=== PATIENT | female | born 1990 | race Caucasian/White ===

== ENCOUNTER 2018-04-13 13:36 | Observation (INO) | payer OTHER ==
[2018-04-13] MEDS ORDERED: KETOROLAC 30 MG/ML 1 ML VIAL IVP STA ×2 (13:57→15:29)
[2018-04-13] MEDS ORDERED: fentaNYL (PF) 50 MCG/ML 2 ML AMP IV STA (13:59)
[2018-04-13 14:21] LABS: Basophils % (A) 1 %; Eosinophils # (A) 0.1 k/uL (0-0.7); Eosinophils % (A) 2 %; HCT 41.5 % (34.0-46.0); HGB 13.9 gm/dL (11.4-16.0); Lymphocytes # (A) 1.5 k/uL (1.0-4.8); Lymphocytes % (A) 26 %; MCH 28.5 pg (25.0-35.0); MCHC 33.6 g/dL (31.0-37.0); MCV 84.9 fL (80.0-100.0); Mean Platelet Volume 7.3; Monocytes # (A) 0.3 k/uL (0-1.0); Monocytes % (A) 6 %; Neutrophils # (A) 3.8 k/uL (1.3-7.7); Neutrophils % (A) 63 %; Platelet Count 243 k/uL (150-450); RBC 4.89 m/uL (3.80-5.40); RDW 13.6 % (11.5-15.5); WBC 5.9 k/uL (3.8-10.6)
[2018-04-13 14:25] LABS: HCG,Qualitative Serum Not Detected
[2018-04-13 14:27] LABS: Anion Gap 5 mmol/L; Blood Urea Nitrogen 17 mg/dL (7-17); Calcium 8.8 mg/dL (8.4-10.2); Carbon Dioxide 25 mmol/L (22-30); Chloride 109 mmol/L (98-107); Glucose 123 mg/dL (74-99); Potassium 4.3 mmol/L (3.5-5.1); Sodium 139 mmol/L (137-145)
[2018-04-13] MEDS ORDERED: diphenhydrAMINE 50 MG CAP PO STA (14:29)
[2018-04-13] MEDS ORDERED: methylPREDNISolone SOD SUCCI 125 MG/2 ML VIAL IV STA (14:29)
[2018-04-13] MEDS ORDERED: FAMOTIDINE 20 MG/2 ML VIAL IV STA (14:30)
--- NOTE | 2018-04-13 15:21 | ED ---
Fall HPI - General Chief Complaint: Fall Stated Complaint: fall, back pain Time Seen by Provider: 04/13/18 13:52 Source: patient, EMS Mode of arrival: EMS - History of Present Illness Initial Comments: 28-year-old female presenting after mechanical fall. Patient states she was walking when she tripped on her daughter stress falling backwards and she heard a crunch in her back. She's been unable to ambulate secondary to the pain. She admits to right fifth toe numbness but denies any other numbness or weakness. Denies any saddle anesthesia or bowel or bladder dysfunction. - Related Data Home Medications Medication Instructions Recorded Confirmed Biotin 5 mg PO DAILY 04/13/18 04/13/18 Cholecalciferol [Vitamin D3] 1,000 unit PO DAILY 04/13/18 04/13/18 Ferrous Sulfate [Slow Release Iron] 250 mg PO DAILY 04/13/18 04/13/18 INSULIN LISPRO (For Pump) [humaLOG 0.01 units SQ-PUMP CONTINUOUS 04/13/18 (For Pump)] L.acidoph,Paracasei, B.lactis 1 cap PO DAILY 04/13/18 04/13/18 [Probiotic] Levothyroxine Sodium [Synthroid] 50 mcg PO DAILY 04/13/18 04/13/18 Methylphenidate HCl [Concerta] 54 mg PO DAILY 04/13/18 04/13/18 Ondansetron HCl [Zofran] 8 mg PO Q8H PRN 04/13/18 04/13/18 Sertraline [Zoloft] 50 mg PO DAILY 04/13/18 04/13/18 Allergies Allergy/AdvReac Type Severity Reaction Status Date / Time Opioids - Morphine Analogues Allergy Intermediate Rash/Hives Verified 04/13/18 17:14 morphine AdvReac Itching Verified 04/13/18 14:01 Review of Systems ROS Statement: Those systems with pertinent positive or pertinent negative responses have been documented in the HPI. Review of Systems Constitutional: Denies fever, chills Eyes: Denies change in vision, Denies pain Ears, nose, mouth, throat: Denies headaches, Denies sore throat Cardiovascular: Denies chest pain. Denies palpitations Respiratory: Denies shortness of breath, Denies cough Gastrointestinal: Denies abdominal pain. Denies nausea, vomiting, diarrhea. Genitourinary: Denies hematuria, Denies infections Musculoskeletal: Positive back pain, Denies swelling Integumentary: Denies rash Neurological: Denies headache, focal weakness, focal numbness Psychiatric: Denies anxiety, Denies depression Hematologic/Lymphatic: Denies easy bleeding or bruising ROS Other: All systems not noted in ROS Statement are negative. Past Medical History Past Medical History: Diabetes Mellitus Additional Past Medical History / Comment(s): shawn's History of Any Multi-Drug Resistant Organisms: None Reported Past Surgical History: Section, Orthopedic Surgery Past Psychological History: ADD/ADHD Smoking Status: Never smoker Past Alcohol Use History: None Reported Past Drug Use History: None Reported - Past Family History Father Family Medical History: Hypertension Additional Family Medical History / Comment(s): depression Mother Family Medical History: Hypertension, Thyroid Disorder Additional Family Medical History / Comment(s): chirrosis, aniety, depression General Exam - General Exam Comments Initial Comments: General: Awake, alert, No acute Distress HENT: Normocephalic. Atraumatic Eyes: PERRL. EOMI. No scleral icterus. No injected conjunctiva Neck: Full ROM Chest/Lungs: Clear to auscultation bilaterally. No wheezing, rhonchi, or rales Cardiac: Regular rate, rhythm. No murmurs or rubs Abdomen/GI: Soft, nontender, nondistended. No rebound, guarding, or rigidity. Musculoskeletal: Midline lumbar spinal tenderness. Skin: Warm, dry, intact Neurologic: A/Ox3, no weakness, no sensory deficit, no abnormal gait, no coordination deficit Limitations: physical limitation Course Vital Signs 04/13/18 04/13/18 04/13/18 13:47 17:30 17:31 Temperature 98.1 F 98.6 F 98.6 F Pulse Rate 102 H Pulse Rate [ 107 H Pulse Oximetery ] Respiratory 20 18 Rate Blood Pressure 128/89 Blood Pressure 123/76 [Left Arm] O2 Sat by Pulse 98 96 Oximetry Medical Decision Making - Medical Decision Making 28-year-old female presenting with back pain status post fall. Initial exam the patient is awake alert and uncomfortable. She is nexus criteria negative and her c-collar was removed. Head or neck injury in the fall. Patient's x- ray shows an L2 anterior body compression fracture that could be greater than 50 %. At this time the patient may have an unstable fracture. She was instructed to not ambulate and to lay flat. CT lumbar spine without contrast ordered. patient was given Fentanyl and developed diffuse urticaria and itching. Solumedrol, benadryl, and pepcid given. Patient had no oropharyngeal swelling or wheezing. Her symptoms improved after medications. 1649 Spoke with radiology who confirmed that the patient has an L2 fracture involving the anterior and middle columns. There is no spinal canal involvement or foraminal involvement at this time. I spoke with Dr. Cui stated he will speak with Dr. Sanchez. Placed a Hernandez for strict bedrest. Patient at this time remains neurologically intact. [address] Cui again and he stated to admit to Dr. Sanchez, make the patient strict bed rest, and stated she would likely require a brace. Updated patient and family. Medicine placed on consult as patient is a type 1 diabetic. - Lab Data Result diagrams: 04/13/18 14:06 04/13/18 18:06 Lab Results 04/13/18 04/13/18 Range/Units 14:06 14:06 WBC 5.9 (3.8-10.6) k/uL RBC 4.89 (3.80-5.40) m/uL Hgb 13.9 (11.4-16.0) gm/dL Hct 41.5 (34.0-46.0) % MCV 84.9 (80.0-100.0) fL MCH 28.5 (25.0-35.0) pg MCHC 33.6 (31.0-37.0) g/dL RDW 13.6 (11.5-15.5) % Plt Count 243 (150-450) k/uL Neutrophils % 63 % Lymphocytes % 26 % Monocytes % 6 % Eosinophils % 2 % Basophils % 1 % Neutrophils # 3.8 (1.3-7.7) k/uL Lymphocytes # 1.5 (1.0-4.8) k/uL Monocytes # 0.3 (0-1.0) k/uL Eosinophils # 0.1 (0-0.7) k/uL Basophils # 0.0 (0-0.2) k/uL Sodium 139 (137-145) mmol/L Potassium 4.3 (3.5-5.1) mmol/L Chloride 109 H (98-107) mmol/L Carbon Dioxide 25 (22-30) mmol/L Anion Gap 5 mmol/L BUN 17 (7-17) mg/dL Creatinine 0.49 L (0.52-1.04) mg/dL Est GFR (CKD-EPI)AfAm >90 (>60 ml/min/1.73 sqM) Est GFR (CKD-EPI)NonAf >90 (>60 ml/min/1.73 sqM) Glucose 123 H (74-99) mg/dL Calcium 8.8 (8.4-10.2) mg/dL HCG, Qual Not Detected Disposition Clinical Impression: L2 vertebral fracture, Allergic reaction Disposition: ADMITTED IP TO THIS [facility] Decision Date: 04/13/18 Decision Time: 17:06
--- NOTE | 2018-04-13 15:59 | XR ---
EXAMINATION TYPE: XR lumbar spine 2 or 3V DATE OF EXAM: 04/13/2018 CLINICAL HISTORY: EXAMINATION TYPE: XR lumbar spine 2 or 3V DATE OF EXAM: 04/13/2018 CLINICAL HISTORY: Fall, back pain TECHNIQUE: Frontal, lateral, and oblique images of the lumbar spine are obtained. COMPARISON: None. FINDINGS: L2 vertebral body demonstrates anterior height loss with a transversely oriented cortical disruption distending horizontally across the vertebral body to at least its midportion. No anterolisthesis or r etrolisthesis. No retropulsion of the posterior aspect of the vertebral body is evident. No discrete involvement of the posterior elements. Facets remain in normal alignment. There are 5 lumbar type vertebral bodies identified. IMPRESSION: Anterior L2 vertebral body compression fracture with fracture line extending horizontally and involvi ng at least 50% of the vertebral body. Findings are concerning for an unstable fracture. Recommendati on is for emergent CT of the lumbar spine. Supplemental communication findings were discussed with Dr. Francis by Dr. Richardson on 04/13/2018 at 1556 hours
--- NOTE | 2018-04-13 16:51 | CT ---
EXAMINATION TYPE: CT lumbar spine wo con DATE OF EXAM: 04/13/2018 4:19 PM COMPARISON: Radiograph from earlier the same day HISTORY: back pain following fall CT DLP: 1023 mGycm Automated exposure control for dose reduction was used. Unenhanced CT of the lumbar spine was performed. Bone and soft tissue window settings are submitted as well as coronal and sagittal reconstructions. Compression deformity predominantly involving the superior endplate of L2 vertebral body is evident. Fracture involves the anterior and middle vertebral columns. There is no involvement of the posterior elements or posterior column. There is no fracture line which involves the posterior wall of the nora tebral body. The pedicles are intact. Facets remain in normal alignment. No retropulsion of the poste rior elements of the vertebral body. No encroachment of the spinal canal. The neural foramina are not involved. There is slight anterior displacement of the most superior portion of the L2 vertebral bod y fracture fragments. A distinct fracture line extends from the superior portion of the vertebral bod y to involve the inferior endplate of the L2 vertebral body. A separate small fracture fragment is al so identified in involving the most anterolateral left aspect of the vertebral body. There is no evid ence of epidural hematoma. The remaining vertebral bodies and intervertebral disc spaces remain within normal limits. Remaining vertebral bodies all demonstrate normal disc space height. No disc herniation protrusion or central stenosis. No facet joint arthropathy. No evidence for foraminal encroachment. The visualized portio ns of the sacroiliac joints are unremarkable. Limited evaluation of the included solid and hollow abd ominal and pelvic viscera are unremarkable. IMPRESSION: Unstable L2 compression fracture involving anterior and middle columns. There is no evidence of spina l canal encroachment or retropulsion of the posterior aspect of the vertebral body. No evidence of ne ural foraminal involvement. No discrete evidence of epidural hematoma. If there is a clinical concern for spinal cord injury, MRI is recommended. Supplemental communication-findings were discussed with Dr. Francis by Dr. Richardson on 04/13/2018 at appr oximately 1645.
[2018-04-13] MEDS ORDERED: NALOXONE 0.4 MG/ML 1 ML VIAL IV PRN ×2 (17:06→17:15)
[2018-04-13] MEDS ORDERED: TEMAZEPAM 15 MG CAP PO PRN (17:36)
[2018-04-13] MEDS: ACETAMINOPHEN TAB 325 MG TAB PO PRN (17:37)
[2018-04-13 18:25] VITALS: BMI 36.4
[2018-04-13] MEDS: KETOROLAC 30 MG/ML 1 ML VIAL IVP PRN (18:39)
[2018-04-13 18:50] LABS: ALT 29 U/L (9-52); AST 23 U/L (14-36); Albumin 3.9 g/dL (3.5-5.0); Alkaline Phosphatase 64 U/L (38-126); Anion Gap 8 mmol/L; Blood Urea Nitrogen 18 mg/dL (7-17); Calcium 9.5 mg/dL (8.4-10.2); Carbon Dioxide 23 mmol/L (22-30); Chloride 108 mmol/L (98-107); Glucose 216 mg/dL (74-99); Potassium 4.6 mmol/L (3.5-5.1); Sodium 139 mmol/L (137-145); Total Bilirubin 0.2 mg/dL (0.2-1.3); Total Protein 5.9 g/dL (6.3-8.2)
[2018-04-13] MEDS ORDERED: HYDROmorphone 1 MG/ML 1 ML SYRINGE IVP PRN (19:53)
[2018-04-13] MEDS ORDERED: HYDROcodone/APAP 5-325MG 1 EACH TAB PO PRN (19:55)
[2018-04-13 20:16] LABS: Glucose,Whole Blood 218 mg/dL (75-99)
[2018-04-13] MEDS: HYDROcodone/APAP 5-325MG 1 EACH TAB PO PRN (20:59)
[2018-04-13 21:05] LABS: Appearance,Urine Clear (Clear); Bilirubin,Urine Negative (Negative); Blood,Urine Negative (Negative); Color,Urine Light Yellow; Glucose,Urine (UA) 3+ (Negative); Ketones,Urine Negative (Negative); Leukocyte Esterase,Urine Negative (Negative); Nitrite,Urine Negative (Negative); Protein,Urine Negative (Negative); Specific Gravity,Urine 1.007 (1.001-1.035); Urobilinogen,Urine <2.0 mg/dL (<2.0)
[2018-04-13] MEDS: HYDROmorphone 1 MG/ML 1 ML SYRINGE IVP PRN (22:57)
[2018-04-13] MEDS: HEPARIN SODIUM,PORCINE 5,000 UNIT/ML 1 ML VIAL SQ SCH (23:01)
[2018-04-13] MEDS ORDERED: INSPUCOR MISCELLANE PRN (23:57)
[2018-04-13] MEDS ORDERED: INSULIN ASPART 100 UNIT/ML 1 ML 10 ML VIAL SQ PRN (23:57)
[2018-04-14] MEDS: INSULIN LISPRO (For Pump) 100 UNIT/ML VIAL SQ-PUMP SCH ×2 (00:05→18:43)
[2018-04-14] MEDS: HYDROmorphone 1 MG/ML 1 ML SYRINGE IVP PRN (00:58)
[2018-04-14] MEDS: ONDANSETRON 4 MG TAB PO PRN ×2 (01:02→12:06)
[2018-04-14] MEDS: ACETAMINOPHEN TAB 325 MG TAB PO PRN (03:27)
[2018-04-14] MEDS: LEVOTHYROXINE 50 MCG TAB PO SCH (05:31)
[2018-04-14] MEDS: HYDROcodone/APAP 5-325MG 1 EACH TAB PO PRN ×3 (05:31→21:35)
[2018-04-14 06:52] LABS: Glucose,Whole Blood 237 mg/dL (75-99)
[2018-04-14 07:01] LABS: Basophils % (A) 0 %; Eosinophils % (A) 0 %; HCT 42.9 % (34.0-46.0); Lymphocytes % (A) 10 %; MCH 28.3 pg (25.0-35.0); MCHC 32.6 g/dL (31.0-37.0); MCV 86.8 fL (80.0-100.0); Mean Platelet Volume 7.5; Monocytes # (A) 0.6 k/uL (0-1.0); Monocytes % (A) 5 %; Neutrophils % (A) 84 %; Platelet Count 308 k/uL (150-450); RBC 4.94 m/uL (3.80-5.40); RDW 13.7 % (11.5-15.5); WBC 10.8 k/uL (3.8-10.6)
[2018-04-14 07:10] LABS: Anion Gap 8 mmol/L; Blood Urea Nitrogen 18 mg/dL (7-17); Calcium 9.3 mg/dL (8.4-10.2); Carbon Dioxide 25 mmol/L (22-30); Chloride 106 mmol/L (98-107); Glucose 158 mg/dL (74-99); Potassium 4.6 mmol/L (3.5-5.1); Sodium 139 mmol/L (137-145)
[2018-04-14] MEDS ORDERED: NON-FORMULARY DRUG (Biotin [Biotin] 5 MG) PO SCH (09:00)
[2018-04-14] MEDS: INSULIN PUMP MEAL BOLUS 1 UNIT MISC MISCELLANE SCH ×4 (09:40→21:41)
[2018-04-14] MEDS: LACTOBACILLUS ACIDOPH & BULGAR 1 EACH PACKET PO SCH (09:41)
[2018-04-14] MEDS: CHOLECALCIFEROL 1,000 UNIT TAB PO SCH (09:42)
[2018-04-14] MEDS: FERROUS SULFATE 325 MG TAB PO SCH (09:42)
[2018-04-14] MEDS: KETOROLAC 30 MG/ML 1 ML VIAL IVP PRN ×2 (09:42→17:48)
[2018-04-14] MEDS: SERTRALINE 50 MG TAB PO SCH (09:42)
[2018-04-14] MEDS: HEPARIN SODIUM,PORCINE 5,000 UNIT/ML 1 ML VIAL SQ SCH ×2 (09:43→20:38)
[2018-04-14] MEDS: METHYLPHENIDATE HCL 5 MG TAB PO SCH ×2 (09:44→13:34)
--- NOTE | 2018-04-14 10:38 | CONS ---
CONSULTATION DATE OF SERVICE: 04/13/2018. REASON FOR CONSULTATION: Advice regarding diabetes as well as other medical issues requested by Dr. Sanchez. HISTORY OF PRESENT ILLNESS: This 28-year-old woman with a past medical history of multiple medical problems including diabetes type 1, history of Dwight's disease, history of section, ADD and ADHD being followed by Dr. Santoro in the outpatient setting apparently slipped and fell and was admitted with complaints of back pain. The lumbar spine CAT scan showed evidence of unstable L2 compression fracture and the patient admitted for evaluation and treatment by Dr. Sanchez. There is no history of fever, rigors. No headache, loss of conscious or seizures. As far as the diabetes mellitus is concerned the patient is using insulin pump for the last 6-7 years and blood sugar is fairly well controlled and the patient has also seen Dr. Waldron the sap portal developer. There is no history of fever, rigors, chills. PAST MEDICAL HISTORY: History of diabetes type 1, history of Dwight's disease, history of ADD, ADHD. MEDICATIONS: Prior to admission include home medications: 1. Concerta 55 mg p.o. daily. 2. Zofran 8 mg q.8h p.r.n. 3. Lactobacillus tablets. 4. Iron sulfate. 5. Vitamin D 3000 daily. 6. Biotin 5 mg daily. 7. Zoloft 50 mg daily. 8. Synthroid 50 mcg p.o. daily. 9. Insulin pump. ALLERGIES: MORPHINE. FAMILY HISTORY: History of hypertension, depression. SOCIAL HISTORY: No history of smoking. No history of alcohol intake. REVIEW OF SYSTEMS: ENT: No diminished hearing or vision. CARDIOVASCULAR: No angina. RESPIRATORY: As mentioned earlier. GI: No nausea. : No dysuria. NERVOUS SYSTEM: No numbness or weakness. ALLERGY/IMMUNOLOGY: No asthma. MUSCULOSKELETAL: As mentioned. HEMATOLOGY: No history of anemia. ENDOCRINE: As mentioned earlier. CONSTITUTIONAL: As mentioned earlier. DERMATOLOGY: Negative. RHEUMATOLOGY: Negative. PSYCHIATRY: As mentioned earlier. PHYSICAL EXAMINATION: Alert, oriented x3. Pulse 102, blood pressure 120/89, respiration 20, temperature 98.1, pulse ox 98% on room air. HEENT: Conjunctivae normal. Oral mucosa moist. Neck is no jugular venous distention. No carotid bruit. No lymph node enlargement. CARDIOVASCULAR: S1, S2. RESPIRATORY: Breath sounds diminished in the bases. No rhonchi. No crackles. ABDOMEN: Soft, nontender. No mass palpable. LEGS: No edema, no swelling. NERVOUS SYSTEM: Higher functions as mentioned earlier. otherwise moves all 4 limbs. Lower limb movements are painful, otherwise some tenderness in the back also present. SKIN: No ulcer, rash, bleeding. JOINTS: No active deforming arthropathy. LABS: CBC within normal limits. Accu-Cheks are 123 to 106. ASSESSMENT: 1. Fall and unstable L2 compression fracture and back pain. 2. Diabetes mellitus type 1 on insulin pump. 3. Dwight's disease. 4. History of section. 5. History ADD, ADHD. RECOMMENDATIONS AND DISCUSSION: This 28-year-old woman who presented with multiple medical issues. At this time I recommend to continue current management and symptomatic treatment. I recommend to resume the home medications. Continue with insulin pump. Monitor Accu-Cheks closely. DVT prophylaxis. Pain medications and rest of the management per Orthopedic Surgery. Will follow the patient closely with you and patient may be asked to follow with Dr. Santoro closely after discharge. Thank you, Dr. Sanchez, for letting us participate in the care of this patient. We will closely monitor. MMODL / IJN: [id number] / STEVE
--- NOTE | 2018-04-14 10:52 | P.HPOR ---
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 She unfortunately sustained an injury yesterday at home when she slipped on her daughter stress and fell from a standing position onto her backside. She had some acute pain at her lower back due to the fall. She denies loss of consciousness. She denies any problems their back the past. She denies any changes in bowel bladder function. She denies any numbness tingling or lower extremities. Denies any weakness in lower extremities. Denies any chest pain shortness breath. She says the pain is at her lower back and wraps around her back to some degree she has pain when she tries to move and sit up in bed. She denies any weakness in her legs. She denies any paresthesias. Review of Systems As per HPI. Denies nausea vomiting fevers chills or night sweats Past Medical History Past Medical History: Diabetes Mellitus Additional Past Medical History / Comment(s): shawn's, type 1 diabetes with insulin pump History of Any Multi-Drug Resistant Organisms: None Reported Past Surgical History: Section, Orthopedic Surgery Additional Past Surgical History / Comment(s): Had left knee ACL Past Psychological History: ADD/ADHD Smoking Status: Never smoker Past Alcohol Use History: None Reported Past Drug Use History: None Reported - Past Family History Father Family Medical History: Hypertension Additional Family Medical History / Comment(s): depression Mother Family Medical History: Hypertension, Thyroid Disorder Additional Family Medical History / Comment(s): chirrosis, aniety, depression Medications and Allergies Home Medications Medication Instructions Recorded Confirmed Type Biotin 5 mg PO DAILY 04/13/18 04/13/18 History Cholecalciferol [Vitamin D3] 1,000 unit PO DAILY 04/13/18 04/13/18 History Ferrous Sulfate [Slow Release Iron] 250 mg PO DAILY 04/13/18 04/13/18 History INSULIN LISPRO (For Pump) [humaLOG 0.01 units SQ-PUMP CONTINUOUS 04/13/18 History (For Pump)] L.acidoph,Paracasei, B.lactis 1 cap PO DAILY 04/13/18 04/13/18 History [Probiotic] Levothyroxine Sodium [Synthroid] 50 mcg PO DAILY 04/13/18 04/13/18 History Methylphenidate HCl [Concerta] 54 mg PO DAILY 04/13/18 04/13/18 History Ondansetron HCl [Zofran] 8 mg PO Q8H PRN 04/13/18 04/13/18 History Sertraline [Zoloft] 50 mg PO DAILY 04/13/18 04/13/18 History Allergies Allergy/AdvReac Type Severity Reaction Status Date / Time Opioids - Morphine Analogues Allergy Intermediate Rash/Hives Verified 04/13/18 17:14 morphine AdvReac Itching Verified 04/13/18 14:01 Physical Examination Osteopathic Statement: *. No significant issues noted on an osteopathic structural exam other than those noted in the History and Physical/Consult. - L Spine: dermatomal strength & reflexes bilateral Strength: hip flexion: 5/5 (Her back does not have significant tenderness palpation at the midline but she does have some paravertebral spasm at her mid lumbar spine. There is no open wounds lacerations or abrasions.Her lower extremities have full active and passive range of motion with 5 out of 5 strength with hip flexion and knee extension dorsiflexion plantarflexion and EHL. Her hips are nontender to palpation and range of motion. Thighs and calves soft nontender. Abdomen soft nontender she does have an insulin pump. Her neck is nontender to palpation range of motion. Her upper extremities have full active and passive range of motion.) Results - Labs Labs: Abnormal Lab Results - Last 24 Hours (Table) 04/13/18 04/13/18 04/13/18 Range/Units 14:06 18:06 18:06 WBC (3.8-10.6) k/uL Neutrophils # (1.3-7.7) k/uL Chloride 109 H 108 H (98-107) mmol/L BUN 18 H (7-17) mg/dL Creatinine 0.49 L (0.52-1.04) mg/dL Glucose 123 H 216 H (74-99) mg/dL POC Glucose (mg/dL) (75-99) mg/dL Hemoglobin A1c 7.0 H (4.0-6.0) % Total Protein 5.9 L (6.3-8.2) g/dL Urine Glucose (UA) (Negative) 04/13/18 04/13/1818 Range/Units 20:00 20:04 06:14 WBC 10.8 H (3.8-10.6) k/uL Neutrophils # 9.0 H (1.3-7.7) k/uL Chloride (98-107) mmol/L BUN (7-17) mg/dL Creatinine (0.52-1.04) mg/dL Glucose (74-99) mg/dL POC Glucose (mg/dL) 218 H (75-99) mg/dL Hemoglobin A1c (4.0-6.0) % Total Protein (6.3-8.2) g/dL Urine Glucose (UA) 3+ H (Negative) 04/14/18 04/14/18 Range/Units 06:14 06:41 WBC (3.8-10.6) k/uL Neutrophils # (1.3-7.7) k/uL Chloride (98-107) mmol/L BUN 18 H (7-17) mg/dL Creatinine 0.50 L (0.52-1.04) mg/dL Glucose 158 H (74-99) mg/dL POC Glucose (mg/dL) 237 H (75-99) mg/dL Hemoglobin A1c (4.0-6.0) % Total Protein (6.3-8.2) g/dL Urine Glucose (UA) (Negative) H & H 04/13/18 04/14/18 Range/Units 14:06 06:14 Hgb 13.9 14.0 (11.4-16.0) gm/dL Hct 41.5 42.9 (34.0-46.0) % Coagulation 04/13/18 Range/Units 18:06 INR 1.0 (<1.2) Result Diagrams: 04/14/18 06:14 04/14/18 06:14 - Diagnostic results CT Scan - lumbar: report reviewed, image reviewed (The computed tomography scan a lumbar spine report and images are reviewed. She has an L2 compression fracture with involvement and vertebral body. There does not have extension into the pedicles or to the posterior elements. There is no canal compromise. There is no bony retropulsion. There is approximately 20% height loss.) Assessment and Plan Assessment: Acute L2 vertebral compression fracture due to fall Low back pain due to compression fracture and fall No neurologic deficit Plan: Acute L2 vertebral compression fracture due to fall Low back pain due to compression fracture and fall No neurologic deficit The patient has new fracture at L2 due to her fall. His relatively low energy injury and she should do well with conservative management. It is okay for her to get up out of bed without a brace but only to the bathroom and for bathing. Whenever she is out of that she should use a TLSO brace. We will order a Jovan TLSO brace for her and hopefully that will be delivered for her today so that she can be discharged home today with her brace intact. We should discontinue the Hernandez as soon as possible. She may have bathroom privileges without the brace on. If the brace is delivered today and she is comfortable is okay for her to be discharged home today with follow-up in approximately for 5 days with our office. It is likely that she'll be able to continue with conservative management and I do not foresee urgent surgical intervention to be necessary. She could be a candidate for kyphoplasty if her symptoms were to worsen or if the fracture were to settle further but this can be determined on an outpatient basis. I discussed this with her at length and answered her questions and her ' s questions at bedside and they understand and agree. She'll be able to be discharged once she has her brace intact and health see her as an outpatient. Time with Patient: Greater than 30
--- NOTE | 2018-04-14 11:04 | P.DS ---
Providers Date of admission: 04/13/18 17:06 Attending physician: Genevieve Hutchins Consults: 04/13/18 17:15 Consult Physician Routine Consulting Provider: Gay Rowley Consult Reason/Comments: type [address] hutchins for L2 fracture Do you want consulting provider notified?: Yes Primary care physician: Grace Hospital Course: The patient presented on the day of admission as per her history and physical. She had sustained a fall at home from a standing position and suffered a L2 vertebral compression fracture. She is not having any neurologic deficit she did not have any loss of consciousness. She is admitted to the emergency room and we will see her in morning where she was doing well her pain was controlled. She had not been out of bed. She is not having any problems in her lower extremity is. She's not having any troubles with her bowel bladder function. Physical Exam Her back has no open wounds lacerations or abrasions. She is tender to palpation at the mid lumbar spine more on the right and left. There is no crepitus. Abdomen soft and nontender. Chest has good excursion with deep inspiration and expiration. The patient has active and passive range of motion intact at the upper and lower extremities. There is no acute change in neurologic status. She has 5 out of 5 strength for/plantar flexion and EHL. Hospital Course The patient was admitted in regards to her L2 vertebral compression fracture which is acute and traumatic due to a fall. Once patient has a brace intact at his okay for her to increase her mobilization. She may get up to the bathroom without the brace on. We will discontinue her Hernandez. I think that she'll be comfortable with her brace and with her mobility once it is intact and that she will be able to able to be discharged home. I think they are in good stable condition for discharge today when she has her TLSO brace. They will be sent home with appropriate prescriptions. She will sent home with some pain medication and she should continue her insulin management for her diabetes. I answered their questions to the best of my ability in a language that they can understand and they are agreeable with the plan. They will follow up as directed this week for recheck evaluation and repeat x-rays. Plan - Discharge Summary Discharge Rx Participant: No New Discharge Prescriptions: New HYDROcodone/APAP 5-325MG [[place] 5] 1 each PO Q6HR PRN #12 tab PRN Reason: Severe Pain No Action L.acidoph,Paracasei, B.lactis [Probiotic] 1 cap PO DAILY Ferrous Sulfate [Slow Release Iron] 250 mg PO DAILY Cholecalciferol [Vitamin D3] 1,000 unit PO DAILY Biotin 5 mg PO DAILY Sertraline [Zoloft] 50 mg PO DAILY Levothyroxine Sodium [Synthroid] 50 mcg PO DAILY INSULIN LISPRO (For Pump) [humaLOG (For Pump)] 0.01 units SQ-PUMP CONTINUOUS Ondansetron HCl [Zofran] 8 mg PO Q8H PRN PRN Reason: Nausea Methylphenidate HCl [Concerta] 54 mg PO DAILY Discharge Medication List Biotin 5 mg PO DAILY 04/13/18 [History] Cholecalciferol [Vitamin D3] 1,000 unit PO DAILY 04/13/18 [History] Ferrous Sulfate [Slow Release Iron] 250 mg PO DAILY 04/13/18 [History] INSULIN LISPRO (For Pump) [humaLOG (For Pump)] 0.01 units SQ-PUMP CONTINUOUS 03/21 [History] L.acidoph,Paracasei, B.lactis [Probiotic] 1 cap PO DAILY 04/13/18 [History] Levothyroxine Sodium [Synthroid] 50 mcg PO DAILY 04/13/18 [History] Methylphenidate HCl [Concerta] 54 mg PO DAILY 04/13/18 [History] Ondansetron HCl [Zofran] 8 mg PO Q8H PRN 04/13/18 [History] Sertraline [Zoloft] 50 mg PO DAILY 04/13/18 [History] HYDROcodone/APAP 5-325MG [[place] 5] 1 each PO Q6HR PRN #12 tab 04/14/18 [Rx] Follow up Appointment(s)/Referral(s): Regina Santoro MD [Primary Care Provider] - 1-2 days Genevieve Hutchins DO [Doctor of Osteopathic Medicine] - 04/19/18 (Follow-up with Dr. [facility]ins [facility]) Activity/Diet/Wound Care/Special Instructions: May ambulate with brace intact. No repetitive bending twisting or stooping. No lifting greater than 15 pounds No overhead work May shower with brace off. Does not need to use the brace while in bed. But should have the brace on whenever elevated greater than 40. Discharge Disposition: HOME SELF-CARE
[2018-04-14 12:05] LABS: Glucose,Whole Blood 116 mg/dL (75-99)
[2018-04-14] MEDS ORDERED: ONDANSETRON 4 MG/2 ML VIAL IVP PRN (13:14)
[2018-04-14 16:59] LABS: Glucose,Whole Blood 187 mg/dL (75-99)
[2018-04-14 20:23] LABS: Glucose,Whole Blood 154 mg/dL (75-99)
--- NOTE | 2018-04-14 20:56 | PN ---
PROGRESS NOTE DATE OF SERVICE: 04/14/2018 DATE OF SERVICE: This 28-year-old woman who was admitted with fall and unstable L2 compression fractures improving, awaiting a brace today. The patient had some vomiting apparently secondary to pain medications today. No chest pain. No palpitations. No fever. The patient also had insulin pump. PHYSICAL EXAM: Alert and oriented times three. Pulse 81, blood pressure 124/76, respiration 18, temperature 98.4, pulse ox 92% on room air. HEENT are conjunctivae normal. Oral mucosa moist. Neck is no jugular venous distention. No carotid bruit. No lymph node enlargement. Cardiovascular system: S1, S2 muffled. Respiratory: Breath sounds diminished in the bases. No rhonchi. No crackles. ABDOMEN: Soft, nontender. No mass palpable. Legs: No edema. No swell. CENTRAL NERVOUS SYSTEM: No focal deficits. Examination of the back: Some tenderness present. LABS: Accu-Cheks 237, 116. Other labs are noted. ASSESSMENT: 1. Fall and unstable L2 compression fracture with back pain. 2. Diabetes mellitus type 1 on insulin pump. 3. Dwight's disease history. 4. History of section. 5. History of Attention-deficit/hyperactivity disorder. RECOMMENDATIONS AND DISCUSSION: Recommend to continue current medications, management and symptomatic treatment. Monitor blood sugars closely. Otherwise, symptomatic treatment for the vomiting and pursue full liquids if the patient is symptomatic. Otherwise, continue the rest of medications. Further recommendations per Dr. Sanchez. Further recommendations to follow. MMODL / IJN: [id number] /
[2018-04-15] MEDS: KETOROLAC 30 MG/ML 1 ML VIAL IVP PRN ×3 (00:16→12:12)
[2018-04-15] MEDS: HYDROcodone/APAP 5-325MG 1 EACH TAB PO PRN (04:37)
[2018-04-15] MEDS: LEVOTHYROXINE 50 MCG TAB PO SCH (05:58)
[2018-04-15 07:30] VITALS: BP 104/68; PULSE 84; RESP 18; TEMP 98
[2018-04-15 07:34] LABS: Glucose,Whole Blood 160 mg/dL (75-99)
[2018-04-15] MEDS: INSULIN PUMP MEAL BOLUS 1 UNIT MISC MISCELLANE SCH (08:11)
[2018-04-15] MEDS: HEPARIN SODIUM,PORCINE 5,000 UNIT/ML 1 ML VIAL SQ SCH (08:23)
[2018-04-15] MEDS: METHYLPHENIDATE HCL 5 MG TAB PO SCH (08:23)
[2018-04-15] MEDS: LACTOBACILLUS ACIDOPH & BULGAR 1 EACH PACKET PO SCH (08:23)
[2018-04-15] MEDS: SERTRALINE 50 MG TAB PO SCH (08:26)
[2018-04-15] MEDS: FERROUS SULFATE 325 MG TAB PO SCH (08:26)
[2018-04-15] MEDS: CHOLECALCIFEROL 1,000 UNIT TAB PO SCH (08:26)
--- NOTE | 2018-04-15 08:44 | P.PN ---
Progress Note - Text Progress Note Date: 04/15/18 Patient is a very pleasant 28-year-old female who is seen and examined at the bedside for follow-up evaluation for her known L2 compression fracture deformity status post fall. A [place] TLSO was prescribed yesterday. Case management has obtained this prescription. Case management has discussed this brace with Tramaine. Brace will plan to be delivered today, 2017, at 12:30 PM. Patient continues to have pain at the fracture site with movements of the spine. Her pain is better controlled while lying in bed. She denies any lower extremity weakness or radiculopathy bilaterally. She is looking forward to discharge home once this brace has been delivered and fitted appropriately. She is eating and voiding without difficulty. She has no new complaints. She does have a medical history which includes diabetes mellitus with insulin pump. Physical exam: Patient is awake, alert, and oriented 3 Vital signs stable Good chest excursion with deep inspiration and expiration Abdomen soft nontender Examination of lumbar spine reveals skin is intact with no abrasions, lacerations, or bruises; no erythema, purulence or signs of infection Significant pain with palpation around the fracture site at L2 Dorsiflexion, plantarflexion, and extensor hallucis longus positive sustained bilaterally Lower extremity strength 5/5 bilaterally No signs or symptoms of DVT; no calf pain No pain with internal and external rotation of the hips bilaterally Neurovascularly intact Assessment: Acute traumatic L2 vertebral body compression fracture status post fall Low back pain due to compression fracture status post fall No evidence of neurological deficit Diabetes mellitus with insulin pump Plan: 1. Patient has evidence of acute traumatic L2 vertebral body compression fracture status post fall. A prescription has been written and provided to case management for a [place] TLSO brace. Once this brace has been delivered and fitted appropriately, patient will be clear for discharge from an orthopedic spine standpoint. Patient should wear this brace while sitting upright at greater than 45, during increase activities, and during ambulation. Brace does not have to be worn while lying in bed or while bathing. Patient should avoid excessive activities with her lumbar spine; no lifting greater than 10 pounds. Avoid bending and twisting. Patient will plan to follow up in outpatient setting approximately 2 weeks for further evaluation with Talat Brown PA-C or Dr. Rohan Sanchez at [facility] following discharge. 2. Continue pain control medications as prescribed. Prescription for [place] 5 mg/325 mg 1 tab every 6 hours as needed for pain, dispense #[address] Rohan Sanchez. Patient may also take Tylenol OTC as prescribed as needed for relief of her symptoms. She should avoid anti-inflammatories ordered for 6 weeks following her fracture. 3. Patient has been discussed in detail with Dr. Rohan Sanchez and he agrees with this plan
== END 2018-04-15 14:18 | disposition home or self-care (01) ==
LOC: EC 13:36 → 4SSUR 17:06 → INTOOBSV 17:06 → UNDODISIN 04-15 14:18
PROVIDERS: ADMIT Orthopaedic Surgery Orthopaedic Surgery of the Spine; ATTEND Orthopaedic Surgery Orthopaedic Surgery of the Spine
DX: S32.020A Wedge compression fracture of second lumbar vertebra, initial encounter for closed fracture (principal); E06.3 Autoimmune thyroiditis; L50.9 Urticaria, unspecified; T40.4X5A Adverse effect of other synthetic narcotics, initial encounter; E10.9 Type 1 diabetes mellitus without complications; F90.9 Attention-deficit hyperactivity disorder, unspecified type; Z79.4 Long term (current) use of insulin; Z79.890 Hormone replacement therapy; Z79.899 Other long term (current) drug therapy; Z96.41 Presence of insulin pump (external) (internal); Z88.5 Allergy status to narcotic agent; W01.0XXA Fall on same level from slipping, tripping and stumbling without subsequent striking against object, initial encounter; Y92.009 Unspecified place in unspecified non-institutional (private) residence as the place of occurrence of the external cause; Z82.49 Family history of ischemic heart disease and other diseases of the circulatory system; Z81.8 Family history of other mental and behavioral disorders; Z83.79 Family history of other diseases of the digestive system
CPT/HCPCS: 96376 ×4; 96375 ×3; 96374; 99285; 51702; 36415; 80053; 80048 ×2; 85025 ×2; 85610; 81003; 84703; 83036; 72100; 72131; G0378 ×3; J2930; J2405; J3010; J1885 ×3; J1170 ×2

== ENCOUNTER → 2018-05-10 | Outpatient (CLI) | payer OTHER ==
--- NOTE | 2018-05-10 18:36 | MR ---
EXAMINATION TYPE: MR lumbar spine wo con DATE OF EXAM: 05/10/2018 COMPARISON: None HISTORY: Low back pain CONTRAST: 0 mL intravenous Gadavist. TECHNIQUE: Multiplanar, multisequence images of the lumbar spine were acquired. FINDINGS: Cord terminates at the L1 level. Disc heights appear preserved. L5-S1: Mild central protrusion is present. Some mild broad-based disc bulge is present. No thecal sac compression or exiting nerve root compression is evident. No spinal canal stenosis is present. Neura l foramen are patent. L4-L5: There is a small central disc subligamentous herniation beyond the endplate of L5. This has an terior thecal sac contact. No thecal sac deformity is evident. No spinal canal stenosis or neural for aminal stenosis is present. No spinal canal stenosis. No foraminal stenosis. L3-L4: No significant disc bulge or disc herniation. No spinal canal stenosis. No foraminal stenosi s. L2-L3: No significant disc bulge or disc herniation. No spinal canal stenosis. No foraminal stenosi s. L2: There is a superior endplate compression deformity of L2. This does not have significant increase d signal on T2-weighted images suggesting this may be subacute to old. This was present on the CT lum bar spine dated 04/13/2018. No posterior wall displacement is evident. L1-L2: No significant disc bulge or disc herniation. No spinal canal stenosis. No foraminal stenosi s. T12-L1: No significant disc bulge or disc herniation. No spinal canal stenosis. No foraminal stenos is. IMPRESSION: 1. Compression deformity of L2 with 40% loss of anterior vertebral body height. No spinal canal steno sis or neural foraminal stenosis is present. 2. Small central protrusion with some subligamentous disc extension at the L4-5 level. 3. Small central protrusion L5-S1 mild disc bulge.
== END | disposition home or self-care (01) ==
LOC: RADMRIMAIN 13:23
PROVIDERS: ATTEND Orthopaedic Surgery Orthopaedic Surgery of the Spine
DX: M51.27 Other intervertebral disc displacement, lumbosacral region (principal); S32.020D Wedge compression fracture of second lumbar vertebra, subsequent encounter for fracture with routine healing
CPT/HCPCS: 72148

== ENCOUNTER 2019-08-14 13:02 | Inpatient (IN) | payer OTHER ==
[2019-08-14] MEDS ORDERED: SODIUM CHLORIDE 0.9% 1,000 ML IV STA (13:29)
[2019-08-14] MEDS ORDERED: ONDANSETRON 4 MG/2 ML VIAL IVP STA ×2 (13:29→18:37)
[2019-08-14] MEDS ORDERED: FAMOTIDINE 20 MG/2 ML VIAL IV STA (13:30)
--- NOTE | 2019-08-14 13:54 | ED ---
General Adult HPI - General Chief complaint: Recheck/Abnormal Lab/Rx Stated complaint: Unable to control blood sugar Time Seen by Provider: 08/14/19 13:29 Source: patient, RN notes reviewed Mode of arrival: ambulatory Limitations: no limitations - History of Present Illness Initial comments: Patient is a pleasant 29-year-old female presenting to the emergency department with concerns regarding her blood sugar. Patient had a flu positive test 2 days ago at work for flu B. Patient did have fever, last yesterday. Patient has had nausea and some vomiting over the past few days. Blood sugars have been running as high as 500. Patient still has nausea. Patient's blood sugar on her insulin pump is currently 473. Patient is giving herself 16 units currently. No constipation or diarrhea. No abdominal pain - Related Data Home Medications Medication Instructions Recorded Confirmed Biotin 5 mg PO DAILY 04/13/18 04/13/18 Cholecalciferol [Vitamin D3] 1,000 unit PO DAILY 04/13/18 04/13/18 Ferrous Sulfate [Slow Release Iron] 250 mg PO DAILY 04/13/18 04/13/18 INSULIN LISPRO (For Pump) [humaLOG 0.01 units SQ-PUMP CONTINUOUS 04/13/18 04/13/18 (For Pump)] L.acidoph,Paracasei, B.lactis 1 cap PO DAILY 04/13/18 04/13/18 [Probiotic] Levothyroxine Sodium [Synthroid] 50 mcg PO DAILY 04/13/18 04/13/18 Methylphenidate HCl [Concerta] 54 mg PO DAILY 04/13/18 04/13/18 Ondansetron HCl [Zofran] 8 mg PO Q8H PRN 04/13/18 04/13/18 Sertraline [Zoloft] 50 mg PO DAILY 04/13/18 04/13/18 Previous Rx's Medication Instructions Recorded HYDROcodone/APAP 5-325MG [[place] 5] 1 each PO Q6HR PRN #12 tab 04/14/18 Allergies Allergy/AdvReac Type Severity Reaction Status Date / Time Opioids - Morphine Analogues Allergy Intermediate Rash/Hives Verified 04/13/18 17:14 morphine AdvReac Itching Verified 04/13/18 14:01 Review of Systems ROS Statement: Those systems with pertinent positive or pertinent negative responses have been documented in the HPI. ROS Other: All systems not noted in ROS Statement are negative. Constitutional: Reports: as per HPI, fever Eyes: Denies: eye pain ENT: Denies: ear pain Respiratory: Denies: cough Cardiovascular: Denies: chest pain Endocrine: Denies: fatigue Gastrointestinal: Reports: nausea, vomiting. Denies: abdominal pain Genitourinary: Denies: dysuria Musculoskeletal: Denies: back pain Skin: Denies: rash Neurological: Denies: weakness Past Medical History Past Medical History: Diabetes Mellitus Additional Past Medical History / Comment(s): shawn's, type 1 diabetes with insulin pump History of Any Multi-Drug Resistant Organisms: None Reported Past Surgical History: Section, Orthopedic Surgery Additional Past Surgical History / Comment(s): Had left knee ACL Past Psychological History: ADD/ADHD Smoking Status: Never smoker Past Alcohol Use History: None Reported Past Drug Use History: None Reported - Past Family History Father Family Medical History: Hypertension Additional Family Medical History / Comment(s): depression Mother Family Medical History: Hypertension, Thyroid Disorder Additional Family Medical History / Comment(s): chirrosis, aniety, depression General Exam Limitations: no limitations General appearance: alert, in no apparent distress Head exam: Present: normocephalic Eye exam: Present: normal appearance, PERRL ENT exam: Present: normal oropharynx Neck exam: Present: normal inspection Respiratory exam: Present: normal lung sounds bilaterally Cardiovascular Exam: Present: regular rate, normal rhythm GI/Abdominal exam: Present: soft. Absent: tenderness Extremities exam: Present: normal inspection Neurological exam: Present: alert Psychiatric exam: Present: normal affect, normal mood Skin exam: Present: normal color Course Vital Signs 08/14/19 13:17 Temperature 98.2 F Pulse Rate 94 Respiratory 18 Rate Blood Pressure 138/80 O2 Sat by Pulse 98 Oximetry Medical Decision Making - Medical Decision Making Patient reevaluated and resting comfortably in bed. Patient updated on results and plan. Case was discussed in detail with Dr. Rowley, covering for Dr. Hernandez, who will admit. Patient does meet concern for borderline DKA and will be started on protocol. - Lab Data Result diagrams: 08/14/19 13:58 08/14/19 13:58 Lab Results 08/14/19 08/14/19 08/14/19 Range/Units 13:58 13:58 13:58 WBC 6.0 (3.8-10.6) k/uL RBC 5.22 (3.80-5.40) m/uL Hgb 14.7 (11.4-16.0) gm/dL Hct 44.4 (34.0-46.0) % MCV 85.0 (80.0-100.0) fL MCH 28.2 (25.0-35.0) pg MCHC 33.2 (31.0-37.0) g/dL RDW 13.3 (11.5-15.5) % Plt Count 255 (150-450) k/uL Neutrophils % 70 % Lymphocytes % 21 % Monocytes % 5 % Eosinophils % 2 % Basophils % 1 % Neutrophils # 4.2 (1.3-7.7) k/uL Lymphocytes # 1.3 (1.0-4.8) k/uL Monocytes # 0.3 (0-1.0) k/uL Eosinophils # 0.1 (0-0.7) k/uL Basophils # 0.1 (0-0.2) k/uL Sodium 133 L (137-145) mmol/L Potassium 4.5 (3.5-5.1) mmol/L Chloride 102 (98-107) mmol/L Carbon Dioxide 21 L (22-30) mmol/L Anion Gap 10 mmol/L BUN 16 (7-17) mg/dL Creatinine 0.60 (0.52-1.04) mg/dL Est GFR (CKD-EPI)AfAm >90 (>60 ml/min/1.73 sqM) Est GFR (CKD-EPI)NonAf >90 (>60 ml/min/1.73 sqM) Glucose 294 H (74-99) mg/dL POC Glucose (mg/dL) (75-99) mg/dL POC Glu Motor Polarizer ID Calcium 9.1 (8.4-10.2) mg/dL Total Bilirubin 0.3 (0.2-1.3) mg/dL AST 22 (14-36) U/L ALT 15 (4-34) U/L Alkaline Phosphatase 66 (38-126) U/L Total Protein 6.3 (6.3-8.2) g/dL Albumin 4.2 (3.5-5.0) g/dL Amylase 35 (30-110) U/L Lipase 53 (23-300) U/L Urine Color Light Yellow Urine Appearance Clear (Clear) Urine pH 6.0 (5.0-8.0) Ur Specific [place] 1.016 (1.001-1.035) Urine Protein Negative (Negative) Urine Glucose (UA) 4+ H (Negative) Urine Ketones Negative (Negative) Urine Blood Negative (Negative) Urine Nitrite Negative (Negative) Urine Bilirubin Negative (Negative) Urine Urobilinogen <2.0 (<2.0) mg/dL Ur Leukocyte Esterase Trace H (Negative) Urine WBC 2 (0-5) /hpf Ur Squamous Epith Cells 5 H (0-4) /hpf Urine Mucus Rare H (None) /hpf Acetone, Qual Positive (Negative) 08/14/19 Range/Units 13:59 WBC (3.8-10.6) k/uL RBC (3.80-5.40) m/uL Hgb (11.4-16.0) gm/dL Hct (34.0-46.0) % MCV (80.0-100.0) fL MCH (25.0-35.0) pg MCHC (31.0-37.0) g/dL RDW (11.5-15.5) % Plt Count (150-450) k/uL Neutrophils % % Lymphocytes % % Monocytes % % Eosinophils % % Basophils % % Neutrophils # (1.3-7.7) k/uL Lymphocytes # (1.0-4.8) k/uL Monocytes # (0-1.0) k/uL Eosinophils # (0-0.7) k/uL Basophils # (0-0.2) k/uL Sodium (137-145) mmol/L Potassium (3.5-5.1) mmol/L Chloride (98-107) mmol/L Carbon Dioxide (22-30) mmol/L Anion Gap mmol/L BUN (7-17) mg/dL Creatinine (0.52-1.04) mg/dL Est GFR (CKD-EPI)AfAm (>60 ml/min/1.73 sqM) Est GFR (CKD-EPI)NonAf (>60 ml/min/1.73 sqM) Glucose (74-99) mg/dL POC Glucose (mg/dL) 292 H (75-99) mg/dL POC Glu Motor Polarizer ID Katy Zee Calcium (8.4-10.2) mg/dL Total Bilirubin (0.2-1.3) mg/dL AST (14-36) U/L ALT (4-34) U/L Alkaline Phosphatase (38-126) U/L Total Protein (6.3-8.2) g/dL Albumin (3.5-5.0) g/dL Amylase (30-110) U/L Lipase (23-300) U/L Urine Color Urine Appearance (Clear) Urine pH (5.0-8.0) Ur Specific [place] (1.001-1.035) Urine Protein (Negative) Urine Glucose (UA) (Negative) Urine Ketones (Negative) Urine Blood (Negative) Urine Nitrite (Negative) Urine Bilirubin (Negative) Urine Urobilinogen (<2.0) mg/dL Ur Leukocyte Esterase (Negative) Urine WBC (0-5) /hpf Ur Squamous Epith Cells (0-4) /hpf Urine Mucus (None) /hpf Acetone, Qual (Negative) Disposition Clinical Impression: Diabetic ketoacidosis Disposition: ADMITTED IP TO THIS HOSP Is patient prescribed a controlled substance at d/c from ED?: No Referrals: Regina Santoro MD [Primary Care Provider] - 1-2 days Decision Time: 15:51
[2019-08-14 14:02] LABS: Glucose,Whole Blood 292 mg/dL (75-99)
[2019-08-14 14:18] LABS: Basophils # (A) 0.1 k/uL (0-0.2); Basophils % (A) 1 %; Eosinophils # (A) 0.1 k/uL (0-0.7); Eosinophils % (A) 2 %; HCT 44.4 % (34.0-46.0); HGB 14.7 gm/dL (11.4-16.0); Lymphocytes # (A) 1.3 k/uL (1.0-4.8); Lymphocytes % (A) 21 %; MCH 28.2 pg (25.0-35.0); MCHC 33.2 g/dL (31.0-37.0); Mean Platelet Volume 8.3; Monocytes # (A) 0.3 k/uL (0-1.0); Monocytes % (A) 5 %; Neutrophils # (A) 4.2 k/uL (1.3-7.7); Neutrophils % (A) 70 %; Platelet Count 255 k/uL (150-450); RBC 5.22 m/uL (3.80-5.40); RDW 13.3 % (11.5-15.5)
[2019-08-14 14:31] LABS: Appearance,Urine Clear (Clear); Bilirubin,Urine Negative (Negative); Blood,Urine Negative (Negative); Color,Urine Light Yellow; Glucose,Urine (UA) 4+ (Negative); Ketones,Urine Negative (Negative); Leukocyte Esterase,Urine Trace (Negative); Mucus,Urine Rare /hpf; Nitrite,Urine Negative (Negative); Protein,Urine Negative (Negative); Specific Gravity,Urine 1.016 (1.001-1.035); Squamous Epithelial Cell,Urine 5 /hpf (0-4); Urobilinogen,Urine <2.0 mg/dL (<2.0); WBC,Urine 2 /hpf (0-5)
[2019-08-14 14:33] LABS: ALT 15 U/L (4-34); AST 22 U/L (14-36); African American GFR (CKD) >90 (>60 ml/min/1.73 sqM); Albumin 4.2 g/dL (3.5-5.0); Alkaline Phosphatase 66 U/L (38-126); Amylase 35 U/L (30-110); Anion Gap 10 mmol/L; Blood Urea Nitrogen 16 mg/dL (7-17); Calcium 9.1 mg/dL (8.4-10.2); Carbon Dioxide 21 mmol/L (22-30); Chloride 102 mmol/L (98-107); Glucose 294 mg/dL (74-99); Non-African American GFR(CKD) >90 (>60 ml/min/1.73 sqM); Potassium 4.5 mmol/L (3.5-5.1); Sodium 133 mmol/L (137-145); Total Bilirubin 0.3 mg/dL (0.2-1.3); Total Protein 6.3 g/dL (6.3-8.2)
[2019-08-14] MEDS ORDERED: SODIUM CHLORIDE 0.9% 1,000 ML IV ONE (15:51)
[2019-08-14] MEDS ORDERED: INSULIN REGULAR 100 UNIT in SODIUM CHLORIDE 0.9% 100 ML IV SCH (16:00)
[2019-08-14] MEDS: SODIUM CHLORIDE 0.9% 1,000 ML IV SCH ×2 (16:13→23:02)
[2019-08-14 16:27] LABS: VBG PH 7.41 (7.31-7.41)
[2019-08-14] MEDS: D5-0.45% NACL WITH KCL 20MEQ/L 1,000 ML IV SCH ×2 (17:12→23:42)
[2019-08-14 17:22] LABS: Glucose,Whole Blood 111 mg/dL (75-99)
[2019-08-14 17:43] LABS: Glucose,Whole Blood 121 mg/dL (75-99)
[2019-08-14 18:07] LABS: Glucose,Whole Blood 132 mg/dL (75-99)
[2019-08-14 18:52] LABS: Glucose,Whole Blood 159 mg/dL (75-99)
[2019-08-14 19:03] LABS: Glucose,Whole Blood 194 mg/dL (75-99)
[2019-08-14 19:10] LABS: ALT 14 U/L (4-34); AST 16 U/L (14-36); African American GFR (CKD) >90 (>60 ml/min/1.73 sqM); Albumin 3.8 g/dL (3.5-5.0); Alkaline Phosphatase 63 U/L (38-126); Anion Gap 7 mmol/L; Blood Urea Nitrogen 13 mg/dL (7-17); Calcium 8.9 mg/dL (8.4-10.2); Carbon Dioxide 25 mmol/L (22-30); Chloride 105 mmol/L (98-107); Glucose 148 mg/dL (74-99); Non-African American GFR(CKD) >90 (>60 ml/min/1.73 sqM); Potassium 4.2 mmol/L (3.5-5.1); Sodium 137 mmol/L (137-145); Total Bilirubin 0.1 mg/dL (0.2-1.3)
[2019-08-14] MEDS ORDERED: INSULIN NPH 300 UNIT/3 ML VIAL SQ ONE (19:27)
[2019-08-14 19:35] LABS: Glucose,Whole Blood 238 mg/dL (75-99)
[2019-08-14] MEDS ORDERED: TEMAZEPAM 15 MG CAP PO PRN (20:09)
[2019-08-14] MEDS ORDERED: ALPRAZolam 0.25 MG TAB PO PRN (20:09)
[2019-08-14] MEDS ORDERED: ACETAMINOPHEN TAB 500 MG TAB PO PRN (20:09)
[2019-08-14 20:10] LABS: Glucose,Whole Blood 234 mg/dL (75-99)
[2019-08-14 20:52] LABS: Glucose,Whole Blood 223 mg/dL (75-99)
[2019-08-14] MEDS ORDERED: INSULIN DETEMIR (LEVEMIR) 100 UNIT/ML SYR SQ SCH (21:00)
--- NOTE | 2019-08-14 21:14 | XR ---
EXAMINATION: XR chest 1V portable DATE AND TIME: 08/14/2019 8:25 PM CLINICAL INDICATION: PHH; pneumonia TECHNIQUE: AP upright portable COMPARISON: None FINDINGS: The lungs are clear. The pleural spaces are negative. The cardiac silhouette is not enlarged. The remainder of the mediastinal silhouette is unremarkable. The skeletal structures and soft tissues are negative for acute findings. IMPRESSION: NO ACUTE PROCESS.
[2019-08-14] MEDS: HEPARIN SODIUM,PORCINE 5,000 UNIT/ML 1 ML VIAL SQ SCH (21:39)
[2019-08-14 21:41] LABS: Glucose,Whole Blood 202 mg/dL (75-99)
[2019-08-14] MEDS: INSULIN ASPART (NovoLOG) 100 UNIT/ML VIAL SQ SCH (22:00)
[2019-08-14 22:14] LABS: Glucose,Whole Blood 181 mg/dL (75-99)
[2019-08-14] MEDS: OSELTAMIVIR 75 MG CAP PO SCH (22:22)
[2019-08-14 22:50] LABS: Glucose,Whole Blood 187 mg/dL (75-99)
--- NOTE | 2019-08-15 00:26 | HP ---
HISTORY AND PHYSICAL DATE OF SERVICE: 08/14/2019 CHIEF COMPLAINT: Uncontrolled blood sugars. HISTORY OF PRESENT ILLNESS: This 29-year-old woman with a past medical history of diabetes type 1 for at least 18 years, history of insulin pump, history of DJD, history ADD, ADHD, being followed by Dr. 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 The patient apparently had cough and sputum and flu B positive about a few days ago. The patient was prescribed Tamiflu. The patient took some of the tablets, but subsequently patient had some nausea and some vomiting and the patient is not feeling better and the sugars are running at 500. The patient [facility] and was admitted to the hospital for further evaluation and treatment. Further evaluation in the ER, initial evaluation showed a glucose of 238, but CO2 was 21 and acetone was positive indicating early diabetic ketoacidosis. There is no history of fever, rigors or chills. No history of headache, loss of consciousness, seizures at this time. PAST MEDICAL HISTORY: History of diabetes type 2, Dwight's, section, DJD, ADD, ADHD and history of recent influenza B. HOME MEDICATIONS: 1. Insulin pump. 2. Zoloft 50 mg p.o. daily. 3. Zofran 8 mg q.8 p.r.n. 4. Concerta 50 mg daily. 5. Synthroid 50 mcg p.o. daily. 6. Probiotic 1 p.o. daily. 7. [place] 5 mg q.6h p.r.n. 8. Slow release iron 50 mg p.o. daily. 9. Vitamin D3 1000 daily. 10.Biotin 5 mg p.o. daily. ALLERGIES: OPIOIDS AND MORPHINE. FAMILY HISTORY: History of hypertension, depression in the family. SOCIAL HISTORY: No history of smoking. No history of alcohol intake. REVIEW OF SYSTEMS: ENT: No diminished vision. No diminished hearing. CARDIOVASCULAR: No angina or palpitations. RESPIRATORY: As mentioned earlier. GI no nausea or vomiting. no dysuria. Nervous system: No numbness or weakness. Allergy/Immunology: No asthma or hayfever. MUSCULOSKELETAL as mentioned earlier. HEMATOLOGY/ONCOLOGY: No history of anemia. ENDOCRINE: As mentioned earlier. CONSTITUTIONAL: As mentioned earlier. DERMATOLOGY: Negative. RHEUMATOLOGY negative. PSYCHIATRY as mentioned earlier. PHYSICAL EXAMINATION: Alert and oriented x3. Pulse is 94. Blood pressure 130/80, respiration 18, temp 98.2, pulse ox 98% on room. HEENT: Conjunctivae normal. NECK: No JVD. CARDIOVASCULAR: S1, S2 normal. RESPIRATION: Breath sounds diminished in the bases. No rhonchi. No crackles. ABDOMEN: Soft, obese, nontender. No mass palpable. LEGS: No edema. No swelling. NERVOUS SYSTEM: Higher functions as mentioned earlier. Moves all four limbs. No focal motor or sensory deficits. LYMPHATICS: No lymph nodes palpable in the neck, axillae or groin. SKIN no ulcers, rashes or bleeding. JOINTS: No active deforming arthropathy. LABS: CBC within normal limits. Sodium 133 and glucose noted. Other labs are noted. ASSESSMENT: 1. Acute diabetic ketoacidosis and uncontrolled blood sugars with uncontrolled diabetes type 1. 2. Recent influenza B. 3. Hyponatremia, possibly pseudohyponatremia. 4. History of Dwight's disease. 5. On insulin pump. 6. History of degenerative joint disease. 7. History of 8. attention-deficit disorder, attention-deficit/hyperactivity disorder. 9. Obesity body mass of 39.1. RECOMMENDATIONS AND DISCUSSION: In this 29-year-old woman who presented with multiple complex medical issues, we will monitor the patient closely, continue the current medications, management and symptomatic treatment. I recommend insulin drip per DKA protocol. The patient had signs of early diabetic ketoacidosis with blood sugar running extremely high. I would recommend continued monitoring and once the anion gap closes the drip can be changed according to current protocol. Otherwise, I would also recommend to continue the course of Tamiflu. Symptomatic treatment will be provided. I would also recommend a chest x- ray to evaluate for any possible pneumonia. Otherwise, repeat labs are ordered. Prognosis guarded because of multiple complex medical issues. Further recommendations to follow. A copy of dictation being forwarded to Dr. Santoro who is the primary physician. MMBHUMIKAL / CHILANGON: [id number] / [email or web address]
[2019-08-15 01:50] LABS: Glucose,Whole Blood 293 mg/dL (75-99)
[2019-08-15] MEDS ORDERED: ONDANSETRON 4 MG/2 ML VIAL IVP STA (01:58)
[2019-08-15] MEDS ORDERED: INSULIN ASPART (NovoLOG) 100 UNIT/ML VIAL SQ ONE (02:01)
[2019-08-15] MEDS: SODIUM CHLORIDE 0.9% 1,000 ML IV SCH ×4 (02:15→12:47)
[2019-08-15 04:01] LABS: Glucose,Whole Blood 196 mg/dL (75-99)
[2019-08-15 07:15] LABS: Glucose,Whole Blood 164 mg/dL (75-99)
[2019-08-15] MEDS ORDERED: PANTOPRAZOLE 40 MG TABLET PO SCH (07:30)
[2019-08-15 07:38] VITALS: BP 106/66; PULSE 90; RESP 16; TEMP 98.7
[2019-08-15] MEDS: INSULIN ASPART (NovoLOG) 100 UNIT/ML VIAL SQ SCH ×4 (08:28→12:48)
[2019-08-15] MEDS: HEPARIN SODIUM,PORCINE 5,000 UNIT/ML 1 ML VIAL SQ SCH (08:31)
[2019-08-15] MEDS: OSELTAMIVIR 75 MG CAP PO SCH (08:31)
[2019-08-15 10:05] LABS: Basophils % (A) 1 %; Eosinophils # (A) 0.1 k/uL (0-0.7); Eosinophils % (A) 2 %; HCT 39.7 % (34.0-46.0); HGB 13.1 gm/dL (11.4-16.0); Lymphocytes # (A) 1.3 k/uL (1.0-4.8); Lymphocytes % (A) 28 %; MCH 28.1 pg (25.0-35.0); MCHC 32.9 g/dL (31.0-37.0); MCV 85.3 fL (80.0-100.0); Mean Platelet Volume 8.4; Monocytes # (A) 0.3 k/uL (0-1.0); Monocytes % (A) 6 %; Neutrophils # (A) 2.7 k/uL (1.3-7.7); Neutrophils % (A) 59 %; Platelet Count 232 k/uL (150-450); RBC 4.66 m/uL (3.80-5.40); RDW 13.4 % (11.5-15.5); WBC 4.6 k/uL (3.8-10.6)
[2019-08-15 10:23] LABS: African American GFR (CKD) >90 (>60 ml/min/1.73 sqM); Anion Gap 7 mmol/L; Blood Urea Nitrogen 11 mg/dL (7-17); Calcium 8.7 mg/dL (8.4-10.2); Carbon Dioxide 22 mmol/L (22-30); Chloride 106 mmol/L (98-107); Glucose 195 mg/dL (74-99); Non-African American GFR(CKD) >90 (>60 ml/min/1.73 sqM); Potassium 4.4 mmol/L (3.5-5.1); Sodium 135 mmol/L (137-145)
[2019-08-15 12:20] LABS: Glucose,Whole Blood 193 mg/dL (75-99)
[2019-08-15 17:40] LABS: Hemoglobin A1C 7.4 % (4.0-6.0)
--- NOTE | 2019-08-16 11:00 | DS ---
DISCHARGE SUMMARY DATE OF SERVICE: 08/15/2019 FINAL DIAGNOSES: 1. Diabetes mellitus, type 1, uncontrolled, with hyperglycemia as well as acute diabetic ketosis, early, status post insulin drip. 2. Recent influenza B. 3. Hyponatremia, possibly pseudohyponatremia. 4. History of Dwight's disease. 5. On insulin pump. 6. History of degenerative joint disease. 7. Attention deficit disorder, attention deficit hyperactivity disorder. 8. Obesity with body mass index of 39.1. DISCHARGE DISPOSITION: The patient will be discharged in stable condition with guarded prognosis. HISTORY OF PRESENT ILLNESS: This 29-year-old woman with a past medical history of multiple medical problems, being followed by Dr. Santoro in the outpatient setting, was admitted with uncontrolled blood sugars and features of early diabetic ketosis. Insulin replacement protocol was continued. The patient improved significantly. Anion gap closed and the patient's insulin was transitioned to the patient's insulin pump. Improved significantly. Serum acetone became negative. On exam, vitals are stable. CARDIOVASCULAR SYSTEM: S1, S2 muffled. ABDOMEN: Soft. NERVOUS SYSTEM: No focal deficit. DISCHARGE ADVICE AND MEDICATIONS: 1. Diet is cardiac. 2. Activity limited until followup. 3. Continue with insulin pump. 4. Tylenol p.o. b.i.d. for 3 more days. 5. Humalog. 6. Norethindrone as before. 7. Synthroid 50 mcg p.o. daily. 8. Vortioxetine 10 mg p.o. daily. 9. Albuterol p.r.n. Once again, the patient will be discharged in stable condition with guarded prognosis. MMODL / IJN: [id number] / MTDD
== END 2019-08-15 15:05 | disposition home or self-care (01) | DRG 638 ==
LOC: EC 13:02 → 3SCARD 15:52 → 4SSUR 19:36
PROVIDERS: ADMIT Hospitalist; ATTEND Hospitalist
DX: E10.10 Type 1 diabetes mellitus with ketoacidosis without coma (principal); E87.1 Hypo-osmolality and hyponatremia; E06.3 Autoimmune thyroiditis; E66.9 Obesity, unspecified; F90.9 Attention-deficit hyperactivity disorder, unspecified type; Z68.39 Body mass index [BMI] 39.0-39.9, adult; Z79.4 Long term (current) use of insulin; Z79.890 Hormone replacement therapy; Z79.899 Other long term (current) drug therapy; Z81.8 Family history of other mental and behavioral disorders; Z82.49 Family history of ischemic heart disease and other diseases of the circulatory system; Z96.41 Presence of insulin pump (external) (internal); Z88.5 Allergy status to narcotic agent; M19.90 Unspecified osteoarthritis, unspecified site; Z79.891 Long term (current) use of opiate analgesic
CPT/HCPCS: 36415; 71045; 80048; 80053; 81001; 82009; 82150; 82803; 83036; 83690; 85025; 93005; 96361; 96365; 96366; 96375; 96376; 99285

== ENCOUNTER 2020-05-12 08:01 | Emergency (ER) | payer OTHER ==
[2020-05-12] MEDS ORDERED: KETOROLAC 15 MG/ML 1 ML VIAL IVP STA (08:24)
--- NOTE | 2020-05-12 08:30 | ED ---
Chest Pain HPI - General Chief Complaint: Chest Pain Stated Complaint: racing heart/hand numbness Time Seen by Provider: 05/12/20 08:12 Source: patient, RN notes reviewed Mode of arrival: ambulatory Limitations: no limitations - History of Present Illness Initial Comments: This is a 30-year-old female with a known history of diabetes and Shawn's disease who presents with complaints of palpitations this started yesterday. She also had episodes diarrhea some nausea she denies any overt fevers chills or sweats. She states she has some anterior chest discomfort feels almost like poking sensation over the right and left costal sternal margin. She also states her fingers and feet have been numb intermittently. She thought maybe her anxiety but is getting worse today. She also feels as if she cannot get a deep breath. She's had no cough no phlegm production no other symptoms. She does occasionally smoke marijuana does not cigarettes no history of adult asthma though she had childhood asthma. She also has again a history of anxiety MD Complaint: chest pain, other - Related Data Home Medications Medication Instructions Recorded Confirmed Levothyroxine Sodium [Synthroid] 50 mcg PO DAILY 04/13/18 05/12/20 Insulin Aspart (Niacinamide) 0.01 units SQ-PUMP CONTINUOUS 05/12/20 05/12/20 [Fiasp 100 Unit/ml Vial] Junel 1/20 Mg/Mcg 1 tab PO DAILY 05/12/20 05/12/20 Multivitamins, Thera [Multivitamin 1 tab PO DAILY 05/12/20 05/12/20 (formulary)] Pravastatin Sodium [Pravachol] 10 mg PO HS 05/12/20 05/12/20 Sertraline [Zoloft] 50 mg PO DAILY 05/12/20 05/12/20 Vitamin B Complex 1 cap PO DAILY 05/12/20 05/12/20 Vitamin D3(Unknown Dose) 1 tab PO DAILY 05/12/20 05/12/20 ondansetron HCL [Zofran] 8 mg PO Q8H PRN 05/12/20 05/12/20 Previous Rx's Medication Instructions Recorded ALPRAZolam [Xanax] 0.25 mg PO BID PRN 3 Days #6 tab 05/12/20 Ibuprofen 800 mg PO Q6HR PRN #20 tablet 05/12/20 Allergies Allergy/AdvReac Type Severity Reaction Status Date / Time Opioids - Morphine Analogues Allergy Intermediate Rash/Hives Verified 05/12/20 08:34 morphine AdvReac Itching Verified 05/12/20 08:34 Review of Systems ROS Statement: Those systems with pertinent positive or pertinent negative responses have been documented in the HPI. ROS Other: All systems not noted in ROS Statement are negative. EKG Findings - EKG Results: EKG: interpreted by LYN, WNL, sinus rhythm, normal axis, normal QRS, normal ST/T, no acute changes (Normal sinus rhythm a 78. Interval 138 QRS duration 92 QT since QTC 362/[address]-T wave changes) Past Medical History Past Medical History: Diabetes Mellitus Additional Past Medical History / Comment(s): shawn's, type 1 diabetes with insulin pump History of Any Multi-Drug Resistant Organisms: None Reported Past Surgical History: Section, Orthopedic Surgery Additional Past Surgical History / Comment(s): Had left knee ACL Past Psychological History: ADD/ADHD, Anxiety, Depression Smoking Status: Never smoker Past Alcohol Use History: None Reported Past Drug Use History: Marijuana - Past Family History Father Family Medical History: Hypertension Additional Family Medical History / Comment(s): depression Mother Family Medical History: Hypertension, Thyroid Disorder Additional Family Medical History / Comment(s): chirrosis, aniety, depression General Exam - General Exam Comments Initial Comments: This is a well-developed well-nourished awake alert oriented 3 female Limitations: no limitations General appearance: alert, anxious Head exam: Present: atraumatic, normocephalic, normal inspection Eye exam: Present: normal appearance, PERRL, EOMI. Absent: scleral icterus, conjunctival injection, periorbital swelling ENT exam: Present: normal exam, mucous membranes moist Neck exam: Present: normal inspection, full ROM, other (No stridor JVD or bruits no tenderness of the thyroid). Absent: tenderness, meningismus, lymphadenopathy Respiratory exam: Present: normal lung sounds bilaterally, chest wall tenderness (Tenderness palpation over the left and right costal sternal margin no step-off no crepitation). Absent: respiratory distress, wheezes, rales, rhonchi, stridor Cardiovascular Exam: Present: regular rate, normal rhythm, normal heart sounds. Absent: systolic murmur, diastolic murmur, rubs, gallop, clicks GI/Abdominal exam: Present: soft, normal bowel sounds. Absent: distended, tenderness, guarding, rebound, rigid Extremities exam: Present: normal inspection, full ROM, normal capillary refill. Absent: tenderness, pedal edema, joint swelling, calf tenderness Back exam: Present: normal inspection Neurological exam: Present: alert, oriented X3, CN II-XII intact Psychiatric exam: Present: normal affect, normal mood Skin exam: Present: warm, dry, intact, normal color. Absent: rash Course Vital Signs 05/12/20 05/12/20 05/12/20 08:04 09:02 10:27 Temperature 98.2 F Pulse Rate 91 79 761 H Respiratory 18 18 8 L Rate Blood Pressure 130/80 122/87 105/71 O2 Sat by Pulse 98 98 100 Oximetry Chest Pain MDM - MDM Did review the imaging no acute findings. Patient is pain-free at this time the presentation is consistent with costochondritis. There is likely a component of anxiety with her. I did discuss all findings with the patient she'll be discharged also with a short course of anxiolytics as well as NSAIDs we did discuss her blood sugar she does have a monitor and a pump. Disposition Clinical Impression: Costochondritis, Chest wall syndrome, Anxiety Disposition: HOME SELF-CARE Condition: Good Instructions (If sedation given, give patient instructions): Costochondritis (ED), Anxiety (ED) Prescriptions: Ibuprofen 800 mg PO Q6HR PRN #20 tablet PRN Reason: Pain ALPRAZolam [Xanax] 0.25 mg PO BID PRN 3 Days #6 tab PRN Reason: Anxiety Is patient prescribed a controlled substance at d/c from ED?: No Referrals: Regina Santoro MD [Primary Care Provider] - 1-2 days
[2020-05-12] MEDS ORDERED: SODIUM CHLORIDE 0.9% 500 ML 500 ML IV STA (08:31)
[2020-05-12] MEDS ORDERED: SODIUM CHLORIDE 0.9% 1,000 ML IV STA (08:31)
[2020-05-12 08:50] LABS: Basophils # (A) 0.1 k/uL (0-0.2); Basophils % (A) 2 %; Eosinophils % (A) 1 %; HCT 44.2 % (34.0-46.0); HGB 15.2 gm/dL (11.4-16.0); Lymphocytes # (A) 0.8 k/uL (1.0-4.8); Lymphocytes % (A) 24 %; MCH 29.3 pg (25.0-35.0); MCHC 34.5 g/dL (31.0-37.0); MCV 84.9 fL (80.0-100.0); Monocytes # (A) 0.2 k/uL (0-1.0); Monocytes % (A) 6 %; Neutrophils # (A) 2.3 k/uL (1.3-7.7); Neutrophils % (A) 66 %; Platelet Count 217 k/uL (150-450); RBC 5.21 m/uL (3.80-5.40); RDW 12.6 % (11.5-15.5); WBC 3.6 k/uL (3.8-10.6)
[2020-05-12 09:07] LABS: ALT 31 U/L (4-34); AST 28 U/L (14-36); African American GFR (CKD) >90 (>60 ml/min/1.73 sqM); Alkaline Phosphatase 80 U/L (38-126); Anion Gap 6 mmol/L; Blood Urea Nitrogen 11 mg/dL (7-17); Calcium 8.6 mg/dL (8.4-10.2); Carbon Dioxide 23 mmol/L (22-30); Chloride 106 mmol/L (98-107); Creatine Kinase 48 U/L (30-135); D-Dimer <0.17 mg/L FEU (<0.60); Glucose 238 mg/dL (74-99); INR 0.9 (<1.2); Magnesium 1.9 mg/dL (1.6-2.3); Non-African American GFR(CKD) >90 (>60 ml/min/1.73 sqM); Partial Thromboplastin Time 22.8 sec (22.0-30.0); Potassium 4.5 mmol/L (3.5-5.1); Prothrombin Time 9.6 sec (9.0-12.0); Sodium 135 mmol/L (137-145); Total Bilirubin 0.4 mg/dL (0.2-1.3); Total Protein 6.3 g/dL (6.3-8.2)
--- NOTE | 2020-05-12 09:10 | XR ---
EXAMINATION TYPE: XR chest 2V DATE OF EXAM: 05/12/2020 COMPARISON: Prior chest x-ray 08/14/2019, CT 13 April 2018 HISTORY: Chest pain, tachycardia TECHNIQUE: Frontal and lateral views of the chest are obtained. FINDINGS: There is no focal air space opacity, pleural effusion, or pneumothorax seen. The cardiac silhouette size is within normal limits. The osseous structures are intact, superior wedge compress ion deformity present likely at the superior endplate L2 is chronic. IMPRESSION: No acute cardiopulmonary process.
[2020-05-12] MEDS ORDERED: LORazepam 2 MG/ML INJ IV STA (09:18)
[2020-05-12 11:52] VITALS: BP 129/85; PULSE 85; RESP 18; TEMP 98.5
== END 2020-05-12 11:51 | disposition home or self-care (01) ==
LOC: EC 08:01
DX: M94.0 Chondrocostal junction syndrome [Tietze] (principal); F41.9 Anxiety disorder, unspecified; E06.3 Autoimmune thyroiditis; E10.9 Type 1 diabetes mellitus without complications; F32.9 Major depressive disorder, single episode, unspecified; F90.9 Attention-deficit hyperactivity disorder, unspecified type; R19.7 Diarrhea, unspecified; F12.90 Cannabis use, unspecified, uncomplicated; Z79.890 Hormone replacement therapy; Z79.4 Long term (current) use of insulin; Z79.899 Other long term (current) drug therapy; Z88.5 Allergy status to narcotic agent
CPT/HCPCS: 36415; 93005; 85379; 83880; 80053; 84443; 82550; 83735; 84484; 85025; 85610; 85730; 71046; 99285; 96374; 96375; 96361 ×3; J2060; J1885